=== PATIENT | female | born 1990 | race Caucasian/White ===

== ENCOUNTER 2018-03-20 20:24 | Emergency (ER) | payer MEDICAID ==
[~2018-03-20] VITALS: Ht 165.1 cm; Wt 56.0 kg
[2018-03-20 20:27] VITALS: BP 121/42
--- NOTE | 2018-03-20 20:53 | NUR ---
pt is 28 yo female would like prescription for suboxane, friend gave her one today, wants to get clean off of heroin, last used 2-3 days ago, has appt at [facility] 03/27 for suboxane, no s/s of withdrawals at this time.
== END 2018-03-20 21:44 | disposition home or self-care (01) ==
LOC: ER 20:25
DX: F11.10 Opioid abuse, uncomplicated (principal); F15.10 Other stimulant abuse, uncomplicated; F17.200 Nicotine dependence, unspecified, uncomplicated
CPT/HCPCS: 99281